=== PATIENT | female | born 1970 | race Hispanic/Latino ===

== ENCOUNTER 2018-09-22 17:30 | Emergency (ER) | payer OTHER ==
[~2018-09-22] VITALS: Ht 160 cm; Wt 79.4 kg
--- NOTE | 2018-09-22 18:29 | Diagnostic Imaging Report ---
Radiographs of the cervical spine - HISTORY: Pain COMPARISON: None available. FINDINGS: Bones: No acute displaced fracture. Osseous alignment is within normal limits. Joints: Scattered degenerative change most pronounced at C5/6. No osseous erosion. Soft tissues: The soft tissues appear unremarkable. IMPRESSION: Scattered degenerative change most pronounced at C5/6. No osseous erosion. Signed by: Dr. Jason Robbins M.D. on 09/22/2018 6:26 PM
== END 2018-09-22 19:05 | disposition home or self-care (01) ==
LOC: FSED 17:30
DX: J02.9 Acute pharyngitis, unspecified (principal); H92.03 Otalgia, bilateral
CPT/HCPCS: 72040; 83518; 99284